=== PATIENT | female | born 1945 | race African-American/Black ===

== ENCOUNTER 2018-05-10 07:30 | Emergency (ER) | payer MEDICARE, MEDICAID ==
[~2018-05-10] VITALS: Ht 167.6 cm; Wt 67.0 kg
[2018-05-10] MEDS ORDERED: SODIUM CHLORIDE 0.9% 1,000 ML IV ONE (08:00)
[2018-05-10] MEDS ORDERED: ONDANSETRON HCL 4MG/2ML VIAL IV STA (08:00)
[2018-05-10] MEDS ORDERED: MORPHINE SULFATE 4 MG/ML CPJ (NOT FOR IM USE) IV STA (08:00)
[2018-05-10 08:48] LABS: BASOPHILS % 0.8 % (0.0-2.0); HEMOGLOBIN. 14.6 g/dL (12.0-16.0); LYMPHOCYTES % 9.9 % (20.0-50.0); MEAN CORPUSCULAR HEMOGLOBIN 29.9 pg (28.0-32.0); MEAN CORPUSCULAR VOLUME 88.2 fL (81.0-99.0); MEAN PLATELET VOLUME 10.3 fl (7.4-10.4); MONOCYTES % 2.5 % (2.0-8.0); NEUTROPHILS % 86.8 % (40.0-76.0); PLATELET 218 x1000/uL (130-400); RED BLOOD CELL COUNT 4.88 mill/uL (4.2-5.4); RED CELL DISTRIBUTION WIDTH 13.5 % (11.6-14.6)
[2018-05-10 08:54] LABS: CHLORIDE 108 mEq/L (98-107)
[2018-05-10 10:02] LABS: INR 1.1; PARTIAL THROMBOPLASTIN TIME 24.7 sec (23.4-31.0); PROTHROMBIN TIME 11.5 sec (9.1-11.1)
[2018-05-10] MEDS ORDERED: IOHEXOL-300 100 ML BOTTLE ONE (10:11)
[2018-05-10 11:28] LABS: CLARITY URINE CLEAR (CLEAR); COLOR URINE YELLOW (YELLOW); KETONES URINE 1+ (NEGATIVE); LEUKOCYTE ESTERASE URINE NEGATIVE (NEGATIVE); NITRITE URINE NEGATIVE (NEGATIVE); OCCULT BLOOD URINE NEGATIVE (NEGATIVE); PROTEIN URINE 1+ (NEGATIVE); UROBILINOGEN URINE 0.2 E.U./dL (0.2-1.0)
[2018-05-10 12:30] VITALS: BP 154/63
== END 2018-05-10 12:47 | disposition home or self-care (01) ==
LOC: ER 07:58
DX: R10.9 Unspecified abdominal pain (principal); N93.9 Abnormal uterine and vaginal bleeding, unspecified; C90.00 Multiple myeloma not having achieved remission; Z85.9 Personal history of malignant neoplasm, unspecified
CPT/HCPCS: 36415; 71045; 74177; 76830; 76856; 80053; 81003; 83690; 85025; 85610; 85730; 86850; 86870; 86900; 86901; 93005; 96361; 96374; 96375; 99285; J2270; J2405; J7030; Q9967